=== PATIENT | female | born 1965 ===

== ENCOUNTER 2017-09-04 11:25 | Emergency (ER) | payer MEDICAID, OTHER ==
[2017-09-04 11:43] VITALS: BP 154/99; PULSE 81; RESP 16; TEMP 98.2; O2SAT 98
[2017-09-04] MEDS ORDERED: Iohexol 300 100 ML IJ ONE (13:00)
[2017-09-04] MEDS ORDERED: Sodium Chloride 0.9% 100 ML ONE (13:01)
[2017-09-04 13:21] LABS: BASO # 0.1 K/uL (0.0-0.2); BASO % 0.9 % (0.0-2.0); EOS # 0.1 K/uL (0.0-0.7); EOS % 1.5 % (0.0-4.0); HEMOGLOBIN 13.8 g/dL (12.0-16.0); LYMPH # 2.9 K/uL (1.0-4.3); MEAN CELL VOLUME 85.1 fl (81.0-99.0); MEAN CORPUSCULAR HEMOGLOBIN 28.7 pg (27.0-31.0); MEAN CORPUSCULAR HGB CONC 33.8 g/dL (33.0-37.0); MONO # 1.1 K/uL (0.0-0.8); MONO % 11.9 % (0.0-10.0); NEUT # 4.9 K/uL (1.8-7.0); NEUT % 53.7 % (50.0-75.0); NRBC % 0.1 % (0.0-0.0); RBC 4.8 Mil/uL (3.80-5.20); RED CELL DISTRIBUTION WIDTH 14.6 % (11.5-14.5); WHITE BLOOD COUNT 9.1 K/uL (4.8-10.8)
[2017-09-04 13:34] LABS: ALB/GLOB RATIO 1.2 (1.0-2.1); ALBUMIN 4.1 g/dL (3.5-5.0); ALT/SGPT 34 U/L (9-52); AST/SGOT 31 U/L (14-36); BLOOD UREA NITROGEN 16 mg/dl (7-17); CALCIUM 9.5 mg/dL (8.4-10.2); GFR AFRICAN-AMERICAN > 60; GFR NON-AFRICAN AMERICAN > 60
--- NOTE | 2017-09-04 14:08 | ED PDOC ---
HPI: General Adult Time Seen by Provider: 09/04/17 11:56 Chief Complaint (Nursing): ENT Problem Chief Complaint (Provider): Right Sided facial Swelling an Sore Throat History Per: Patient History/Exam Limitations: no limitations Onset/Duration Of Symptoms: Hrs Have you had recent travel within the past 21 days to any of the following countries: [place], [place], [place] or [place]?: No Current Symptoms Are (Timing): Still Present Severity: None Additional Complaint(s): 51 year old female presents to the ED complaining of right sided facial swelling and sore throat which she noticed when she woke up this morning. The patient reports that her sore throat is minimal. Denies fever, cough and congestion, sick contacts, recent travel. The patient also states that she was born in [place] and all her vaccinations are up to date. Past Medical History Reviewed: Historical Data, Nursing Documentation, Vital Signs Vital Signs: Last Vital Signs Temp 98.2 F 09/04/17 11:39 Pulse 81 09/04/17 11:39 Resp 16 09/04/17 11:39 BP 154/99 H 09/04/17 11:39 Pulse Ox 98 09/04/17 19:26 - Medical History PMH: No Chronic Diseases - Surgical History Surgical History: No Surg Hx - Family History Family History: States: Unknown Family Hx - Social History Current smoker - smoking cessation education provided: Yes (Current Some Days Smoker) Ex-Smoker (has not smoked in the last 12 months): Yes Alcohol: None Drugs: Denies - Home Medications Home Medications: Ambulatory Orders Medication Instructions Recorded Amoxicillin/Clavulanate [Augmentin 1 tab PO TID #30 tab 09/04/17 500 MG-125 MG] - Allergies Allergies/Adverse Reactions: Allergies Allergy/AdvReac Type Severity Reaction Status Date / Time No Known Allergies Allergy Verified 09/04/17 11:42 Review of Systems ROS Statement: Except As Marked, All Systems Reviewed And Found Negative Constitutional: Negative for: Fever ENT: Positive for: Throat Pain (minimal), Other (Right sided facial swelling ). Negative for: Nose Congestion Respiratory: Negative for: Cough Physical Exam - Reviewed Nursing Documentation Reviewed: Yes Vital Signs Reviewed: Yes - Physical Exam Appears: Positive for: Non-toxic, No Acute Distress Head Exam: Positive for: ATRAUMATIC, NORMAL INSPECTION, NORMOCEPHALIC Skin: Positive for: Normal Color, Warm, Dry. Negative for: Rash Eye Exam: Positive for: Normal appearance, EOMI, PERRL. Negative for: Nystagmus ENT: Positive for: Pharynx Is (clear no exudate), TM Is/Are (non erythematous no bulging), Other (right sided submandibular welling and tenderness; no Swelling beneath tongue; no trismus able to swallow saliva ). Negative for: Pharyngeal Erythema Neck: Positive for: Normal, Painless ROM, Supple Cardiovascular/Chest: Positive for: Regular Rate, Rhythm, Chest Non Tender. Negative for: Tachycardia Respiratory: Positive for: Normal Breath Sounds. Negative for: Rales, Rhonchi, Wheezing, Respiratory Distress Gastrointestinal/Abdominal: Positive for: Normal Exam, Bowel Sounds, Soft. Negative for: Tenderness, Guarding, Rebound Back: Positive for: Normal Inspection. Negative for: L CVA Tenderness, R CVA Tenderness Extremity: Positive for: Normal ROM. Negative for: Tenderness, Deformity Neurologic/Psych: Positive for: Alert, Oriented, Gait - Laboratory Results Result Diagrams: 09/04/17 13:10 09/04/17 13:10 Urine POC: Negative - ECG O2 Sat by Pulse Oximetry: 98 (RA) Pulse Ox Interpretation: Normal - Progress ED Course And Treament: CT maxillofacial and soft tissue neck w/ IV contrast: Marked asymmetric enlargement of the right submandibular gland with surrounding inflammatory changes the adjacent subcutaneous tissues extending to the skin surface. Findings consistent with an inflammatory process of the right submandibular gland. No evidence of on masses collections or calculi within the gland. No evidence of calculi seen in the distribution of the right submandibular duct. No drainable fluid collections Attempted to call [facility] Dept. but no answer. Rasta Owens, infectious disease RN, and Dr. Maddox notified of pending diagnosis. Patient informed of necessary droplet precautions. Case d/w Dr. Ochoa prior to discharge and agrees with disposition. Plan and results d/w patient using [employer] ([employer] [facility]). Given strict instructions on frequent hand washing, covering face when coughing or sneezing, avoid sharing drinks/utensils, and to disinfect frequently touched areas to prevent spread. Medical Decision Making Medical Decision Makin Initial Impression 51 y/o female presenting with sore throat and right sided facial swelling Initial Plan: * CT maxilla w/ contrast * CT Neck soft tissue w/ contrast * Amylase * CMP * Lipase * Upreg * CBC * Blood Culture * Throat culture * Rapid Strep Group * Reevaluation * Mumps IgG/IgM Ab cheek swab testing Documented by Kiersten Ahumada acting as a scribe for Jc Arauz PA-C. All medical record entries made by the Scribe were at my direction and personally dictated by me. I have reviewed the chart and agree that the record accurately reflects my personal performance of the history, physical exam, medical decision making, and the department course for this patient. I have also personally directed, reviewed, and agree with the discharge instructions and disposition. Disposition - Clinical Impression Clinical Impression: Lymphadenopathy - Patient ED Disposition Is Patient to be Admitted: No - Disposition Disposition: Routine/Home Disposition Time: 16:50 Condition: STABLE Prescriptions: Amoxicillin/Clavulanate [Augmentin 500 MG-125 MG] 1 tab PO TID #30 tab Instructions: Sore Throat in Adults Forms: [facility] (South African) Print Language: BELARUSIAN
[2017-09-04 14:17] LABS: AMYLASE 373 U/L (30-110); LIPASE 40 U/L (23-300)
--- NOTE | 2017-09-04 16:13 | CT ---
PROCEDURE: CT scan maxillofacial skeleton. HISTORY: Right sided facial swelling COMPARISON: Correlation made with concurrent CT scan neck TECHNIQUE: Contiguous helical/transaxial CT images of the maxillofacial bones were obtained following administration of IV contrast. Coronal and sagittal reformats were generated. Intravenous contrast Dose: 56 cc Omnipaque 300 Radiation dose: Total exam DLP = 797.85 mGy-cm. This CT exam was performed using one or more of the following dose reduction techniques: Automated exposure control, adjustment of the mA and/or kV according to patient size, and/or use of iterative reconstruction technique. . FINDINGS: The current study reveals marked asymmetry enlargement of the right submandibular gland compared the left side with measurements indicated below: Right = 3.8 cm CC x 2.8 cm T x 2.8 cm AP Left = 2.9 cm CC x 1.6 T x 3.1cm AP No definitive masses collections or calcifications identified within the submandibular gland or calcifications in the expected location of the submandibular duct. These most likely represent an inflammatory process of the right submandibular gland not. There are infiltration changes in the adjacent subcutaneous tissues/ fat and overlying skin. . . Infiltration changes extend inferiorly into the right submandibular and submental soft tissues and superiorly slightly into the right cheek. . The infiltration changes appear to exert mild mass effect with slight asymmetry of the airway at this level of which may be minimally displaced to the right. No drainable on/loculated fluid collections. There is also enlarged right submandibular lymph node which measures approximately 17 mm. Additional prominent surrounding lymph nodes are present. . The adjacent cortex of the mandible appears intact as well. Orbits and contents unremarkable. Visualized paranasal sinuses well-developed. Minor mucosal thickening seen within a few anterior ethmoid air cells left greater than right extending superiorly into the inferior margin of the frontal sinus. There is also minor mucosal thickening floor right maxillary antrum Mastoid air complexes well-developed and currently well-aerated. IMPRESSION: Marked asymmetric enlargement of the right submandibular gland with surrounding inflammatory changes the adjacent subcutaneous tissues extending to the skin surface. Findings consistent with an inflammatory process of the right submandibular gland. No evidence of on masses collections or calculi within the gland. No evidence of calculi seen in the distribution of the right submandibular duct. No drainable fluid collections.
--- NOTE | 2017-09-04 16:47 | CT ---
PROCEDURE: CT scan neck dated 09/04/2017 HISTORY: Right-sided facial swelling COMPARISON: Correlation made with concurrent CT scan maxillofacial skeleton TECHNIQUE: Contiguous helical/ transaxial sections of the neck with intravenous contrast. Coronal and sagittal reformats generated. Intravenous contrast dose: 70 cc Omnipaque 300 contrast material. Radiation dose: DLP 616.96 mGy-cm This CT exam was performed using one or more of the following dose reduction techniques: Automated exposure control, adjustment of the mA and/or kV according to patient size, and/or use of iterative reconstruction technique. FINDINGS: The current study reveals marked asymmetry enlargement of the right submandibular gland compared the left side with measurements indicated below: Right = 3.8 cm CC x 2.8 cm T x 2.8 cm AP Left = 2.9 cm CC x 1.6 T x 3.1cm AP No definitive masses collections or calcifications identified within the submandibular gland or calcifications in the expected location of the submandibular duct. These most likely represent an inflammatory process of the right submandibular gland not. There are infiltration changes in the adjacent subcutaneous tissues/ fat and overlying skin. . . Infiltration changes extend inferiorly into the right submandibular and submental soft tissues and superiorly slightly into the right cheek. . The infiltration changes appear to exert mild mass effect with slight asymmetry of the airway at this level of which may be minimally displaced to the right. No drainable /loculated fluid collections. The adjacent cortex of the mandible appears intact as well. There is also enlarged right submandibular lymph node which measures approximately 17 mm. Additional prominent surrounding lymph nodes are present. . Multiple small bilateral cervical lymph nodes are also present. . The parotid glands appear unremarkable. Crossing and beam streak hardening artifact arising from dense clavicles and shoulder girdles. Limits evaluation of the thyroid gland Orbits and contents unremarkable. Visualized paranasal sinuses well-developed. Minor mucosal thickening seen within a few anterior ethmoid air cells left greater than right extending superiorly into the inferior margin of the frontal sinus. There is also minor mucosal thickening floor right maxillary antrum Mastoid air complexes well-developed and currently well-aerated. Lung apices clear. There is mild reversal of the normal cervical lordosis possibly due to patient positioning in the gantry or spasm IMPRESSION: Marked asymmetric enlargement of the right submandibular gland with surrounding inflammatory changes the adjacent subcutaneous tissues extending to the skin surface. Findings consistent with an inflammatory process of the right submandibular gland. No evidence of on masses collections or calculi within the gland. No evidence of calculi seen in the distribution of the right submandibular duct. No drainable fluid collections
[2017-09-04] MEDS ORDERED: Dexamethasone 10 MG in Sodium Chloride 0.9% 50 ML IVP ONE (17:37)
== END 2017-09-04 18:21 | disposition home or self-care (01) ==
LOC: H.ER 11:25
DX: R59.9 Enlarged lymph nodes, unspecified (principal); F17.200 Nicotine dependence, unspecified, uncomplicated
CPT/HCPCS: 70488; 70491; 80053; 81025; 82150; 83690; 85025; 87040; 87070; 87430; 96374; 99283; J1100; Q9967